=== PATIENT | male | born 1945 | race Caucasian/White ===

== ENCOUNTER 2017-02-28 00:18 | Emergency (ER) | payer OTHER ==
[~2017-02-28] VITALS: Ht 175.3 cm; Wt 81.7 kg
--- NOTE | ~2017-02-28 | EKG ---
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 : 1945 Requested By: Miley Siddiqui Order Number: [id number] MD: Gerardo Gastelum Measurements Intervals [place] Rate: 70 P: 24 TX: 218 QRS: 29 QRSD: 102 T: -11 QT: 389 QTc: 420 Interpretive Statements Sinus rhythm Borderline prolonged [place] interval Small inferior Q waves Compared to ECG 06/04/2015 08:42:24 Sinus tachycardia no longer present Electronically Signed On 02-28-2017 8:41:37 CDT by Gerardo Gastelum [email or web address] <ELECTRONICALLY SIGNED> By: Gerardo Gastelum MD, [facility] 02/28/17 0841 0026 002 Gerardo Gastelum MD, FACC /EPI
[~2017-02-28 00:18] MED LIST: ASPIR 8181 MG PO; ASPIRIN325 PO; ATORVASTATIN CA40 MG PO; CARVEDILOL25 MG PO; CRESTOR20 MG PO; FISH OIL 1,0001 EAC5 PO; MEDROLDOSEPACK PO; MULTIVITAMINS PO; NAPROSYN250 MG PO; NORCO 5-325 TA1 EACH PO; OMEPRAZOLE 20 M20 M1 PO; PRILOSEC20 MG PO; SIMVASTATIN40 MG PO; TYLENOL325 MG PO; VITAMINC500 PO; [UNRECOGNIZED DRUG - OTHER] PO
[2017-02-28 01:16] LABS: ABSOLUTE NEUTROPHILS 4.3 thou/uL (1.4-8.2); BASOPHILS 0.8 % (0.0-2.0); EOSINOPHILS 1.9 % (0.0-3.0); HEMATOCRIT 40.8 % (42.0-52.0); HEMOGLOBIN 13.7 gm/dL (14.0-18.0); LYMPHOCYTES 28.5 % (24.0-44.0); MCHC 33.6 g/dL (28.0-37.0); MCV 86.4 fL (80.0-100.0); MONOCYTES 8.8 % (1.0-8.0); PLATELET COUNT 185 thou/uL (150-400); RBC 4.72 mil/uL (4.50-6.00); RDW 13.6 % (10.5-14.5); WBC 7.2 thou/uL (4.0-11.0)
[2017-02-28 01:17] LABS: MANUAL DIFF NO
[2017-02-28 01:24] LABS: ANION GAP 8 mmol/L (7-16); BUN 16 mg/dL (7-18); CALCIUM 8.9 mg/dL (8.5-10.1); CHLORIDE 105 mmol/L (98-107); CO2 25 mmol/L (21-32); CREATININE 1.3 mg/dL (0.7-1.3); GLUCOSE 123 mg/dL (74-106); POTASSIUM 3.9 mmol/L (3.5-5.1); SODIUM 138 mmol/L (136-145)
[2017-02-28 01:32] LABS: TROPONIN-I < 0.04 ng/mL (<0.04-0.07)
== END 2017-02-28 04:09 | disposition home or self-care (01) ==
LOC: ER 00:18
PROVIDERS: Emergency Medicine
DX: H53.8 Other visual disturbances (principal); R51 Headache; R07.9 Chest pain, unspecified; I25.5 Ischemic cardiomyopathy; I10 Essential (primary) hypertension; K21.9 Gastro-esophageal reflux disease without esophagitis; E78.00 Pure hypercholesterolemia, unspecified; I25.10 Atherosclerotic heart disease of native coronary artery without angina pectoris; Z95.1 Presence of aortocoronary bypass graft; Z95.5 Presence of coronary angioplasty implant and graft; Z85.828 Personal history of other malignant neoplasm of skin; Z98.890 Other specified postprocedural states

== ENCOUNTER → 2019-10-17 | Outpatient (CLI) | payer OTHER | LOC: SJCVCIMAG 10:18 | DX: I25.10 Atherosclerotic heart disease of native coronary artery without angina pectoris (principal); I25.5 Ischemic cardiomyopathy; I10 Essential (primary) hypertension; Z95.1 Presence of aortocoronary bypass graft ==

== ENCOUNTER → 2020-04-16 | Outpatient (CLI) | payer OTHER | LOC: SJCVC 14:10 | PROVIDERS: ATTEND Internal Medicine | DX: R94.31 Abnormal electrocardiogram [ECG] [EKG] (principal); I44.0 Atrioventricular block, first degree; I25.10 Atherosclerotic heart disease of native coronary artery without angina pectoris; I25.5 Ischemic cardiomyopathy; I10 Essential (primary) hypertension; E78.5 Hyperlipidemia, unspecified ==

== ENCOUNTER → 2020-07-09 | Outpatient (CLI) | payer OTHER ==
[~2020-07-09] MED LIST changes: +CARVEDILOL12.5 MG PO; +LEVOXYL50 MCG PO; +OMEPRAZOLE40 MG PO; -PRILOSEC20 MG PO; +ROSUVASTATIN CA20 MG PO
== END ==
LOC: LAB 08:31
PROVIDERS: ATTEND Specialist
DX: Z01.812 Encounter for preprocedural laboratory examination (principal); Z20.828 Contact with and (suspected) exposure to other viral communicable diseases

== ENCOUNTER → 2020-07-14 | Outpatient (CLI) | payer OTHER ==
[~2020-07-14] VITALS: Ht 175.3 cm; Wt 81.6 kg
--- NOTE | 2020-07-16 09:53 | P ---
[facility] [place] [address] PROCEDURE REPORT Name: SONG FLORES V Room #: REG [facility]#: [id number] Admission: 07/14/20 Attend Phys: Brody Whalen Discharge: Date of : 47 Report #: [id number] THIS REPORT FOR: cc: Layton Church MD, Neal A. MD McElhinney, Christian C. MD ~ CC: Bordy Church MD DATE OF SERVICE: 07/14/2020 PROCEDURE PERFORMED: Colonoscopy with biopsies. HISTORY OF PRESENT ILLNESS: The patient is a 74-year-old male with a history of colon polyps, here for routine 5-year followup. Denies any symptoms other than a small episode of bright red blood per rectum 1 time last month. No diarrhea or constipation. No family history of colon cancer. DESCRIPTION OF PROCEDURE: The risks and benefits of the procedure were explained to the patient, those risks including but not limited to bleeding, perforation and the risk of sedation. He understood these risks and gave informed consent. Sedation was given using propofol per anesthesia. Next, a digital rectal exam was initially performed, which was normal. Next, using a standard Olympus colonoscope, the scope was placed in the patient's anus and advanced under direct vision to the cecum. The overall prep was good. The cecum and ileocecal valve were normal in appearance. Ascending, transverse and descending colon were normal. Two 3 mm sessile polyps were noted in the sigmoid colon, both removed with cold forceps, otherwise normal. The rectal mucosa was normal. On retroflexion, small nonbleeding internal hemorrhoids were noted. Close examination of the anal canal showed small external hemorrhoid with a small skin tag as well. No evidence of bleeding. No anal fissure noted. Scope was then withdrawn and the procedure terminated. The patient tolerated the procedure well. IMPRESSION: 1. Two small colonic polyps. 2. Small internal and external hemorrhoids with skin tag, likely source of recent bleeding. No evidence of bleeding at this time. 3. Otherwise, normal colonoscopy. RECOMMENDATIONS: 1. Await biopsy results. 2. If polyps are hyperplastic, consider repeat colonoscopy in 10 years; if adenomatous polyps, repeat in 5 years. 3. We will prescribe Analpram to be used on a p.r.n. basis. [address] [address] PROCEDURE REPORT Name: SONG FLORES V Room #: REG [facility] Benz#: [id number] Admission: 07/14/20 Attend Phys: Brody Whalen Discharge: Date of : 47 Report #: [id number] Thank you for allowing me to participate in his care. <ELECTRONICALLY SIGNED> By: Brody Phillips MD 07/16/20 0953 0907 1258 Brody Phillips MD /nt
--- NOTE | 2020-07-16 09:53 | P ---
[facility] [place] [address] PROCEDURE REPORT Name: SONG FLORES V Room #: REG [facility]#: [id number] Admission: 07/14/20 Attend Phys: Brody Whalen Discharge: Date of : 47 Report #: [id number] THIS REPORT FOR: cc: Layton Church MD, Neal A. MD McElhinney, Christian C. MD ~ CC: Brody Church MD DATE OF SERVICE: 07/14/2020 PROCEDURES PERFORMED: Upper endoscopy with biopsies and esophageal dilation. HISTORY OF PRESENT ILLNESS: The patient is a 74-year-old male with a history of gastroesophageal reflux disease and dysphagia. He underwent an upper endoscopy by myself in 2014, grade B erosive esophagitis was noted at that time and was started on Prilosec. He underwent dilation, which was helpful at that time, but now is having intermittent dysphagia again. Previous biopsies were negative for eosinophilic esophagitis. Gastric biopsies were positive for H. pylori at that time and he was treated. Plan is for repeat upper endoscopy. DESCRIPTION OF PROCEDURE: The risks and benefits of the procedure were explained to the patient, those risks including but not limited to bleeding, perforation and the risk of sedation. He understood these risks and gave informed consent. Sedation was given using propofol per anesthesia. Next, using a standard Olympus upper endoscope, the scope was placed in the patient's mouth and advanced under direct vision through the esophagus, stomach and into the second portion of the duodenum. The esophagus was normal throughout. The GE junction was normal. Upon entering the stomach, a small gastric polyp was noted in the high cardia, this was 3 mm in size and removed with cold forceps. Overall, the gastric mucosa was fairly normal. A mild gastritis was noted in the gastric antrum. No evidence of ulcerations or erosions. Biopsies were obtained to rule out H. pylori. The pylorus was normal and patent. The duodenal bulb, first and second portion were all normal. The scope was then brought back up into the patient's stomach and a Savary guidewire was inserted through the scope, leaving the guidewire in place as the scope was then withdrawn. Next, a 51-[place] Savary dilation of the esophagus was performed without difficulty. The wire and dilator were removed. The scope was reintroduced into the patient's stomach. There was no evidence of mucosal tear after dilation. The scope was then withdrawn and the procedure terminated. The patient tolerated the procedure well. IMPRESSION: 1. Small gastric polyp. 2. Mild gastritis. [address] [address] PROCEDURE REPORT Name: SONG FLORES V [facility] [id number] Admission: 07/14/20 Attend Phys: Brody Whalen Discharge: Date of : 47 Report #: [id number] 3. Otherwise, normal upper endoscopy. RECOMMENDATIONS: 1. Await biopsy results. 2. Continue daily PPI therapy. 3. Observe the patient post-dilation. Thank you for allowing me to participate in his care. <ELECTRONICALLY SIGNED> By: Brody Phillips MD 07/16/20 0953 [id number] 1258 Brody Phillips MD /nt
== END | disposition home or self-care (01) ==
LOC: GI 07:01
PROVIDERS: ATTEND Specialist
DX: K63.5 Polyp of colon (principal); K29.60 Other gastritis without bleeding; B96.81 Helicobacter pylori [H. pylori] as the cause of diseases classified elsewhere; K64.4 Residual hemorrhoidal skin tags; K64.8 Other hemorrhoids; K62.5 Hemorrhage of anus and rectum; K31.7 Polyp of stomach and duodenum; K29.70 Gastritis, unspecified, without bleeding; K21.9 Gastro-esophageal reflux disease without esophagitis; R13.10 Dysphagia, unspecified; I10 Essential (primary) hypertension; I25.10 Atherosclerotic heart disease of native coronary artery without angina pectoris; E78.00 Pure hypercholesterolemia, unspecified; I25.5 Ischemic cardiomyopathy; E03.9 Hypothyroidism, unspecified; Z98.890 Other specified postprocedural states; Z79.899 Other long term (current) drug therapy; Z95.1 Presence of aortocoronary bypass graft; Z88.8 Allergy status to other drugs, medicaments and biological substances
CPT/HCPCS: 62110; 62900

== ENCOUNTER → 2020-10-22 | Outpatient (CLI) | payer OTHER | LOC: SJCVC 15:01 | PROVIDERS: ATTEND Internal Medicine | DX: R94.31 Abnormal electrocardiogram [ECG] [EKG] (principal); I44.0 Atrioventricular block, first degree; I25.10 Atherosclerotic heart disease of native coronary artery without angina pectoris; I25.5 Ischemic cardiomyopathy; I10 Essential (primary) hypertension; E78.5 Hyperlipidemia, unspecified; K21.9 Gastro-esophageal reflux disease without esophagitis; E03.9 Hypothyroidism, unspecified; E78.00 Pure hypercholesterolemia, unspecified; Z95.1 Presence of aortocoronary bypass graft; Z79.899 Other long term (current) drug therapy ==

== ENCOUNTER → 2020-11-29 | Outpatient (CLI) | payer OTHER | LOC: SJCVCIMAG 09:35 | PROVIDERS: ATTEND Internal Medicine | DX: I08.8 Other rheumatic multiple valve diseases (principal); R94.31 Abnormal electrocardiogram [ECG] [EKG]; I25.10 Atherosclerotic heart disease of native coronary artery without angina pectoris; I42.9 Cardiomyopathy, unspecified; I10 Essential (primary) hypertension; I25.5 Ischemic cardiomyopathy; E78.00 Pure hypercholesterolemia, unspecified; Z95.1 Presence of aortocoronary bypass graft; Z68.25 Body mass index [BMI] 25.0-25.9, adult; Z79.899 Other long term (current) drug therapy; Z82.49 Family history of ischemic heart disease and other diseases of the circulatory system ==

== ENCOUNTER 2021-02-24 15:53 | Inpatient (IN) | payer OTHER ==
[~2021-02-24] VITALS: Ht 175.3 cm; Wt 83.5 kg
[2021-02-24 15:57] VITALS: BP 129/77
[2021-02-24] MEDS ORDERED: CHLORTHALIDONE25 MG PO (16:02)
[2021-02-24 16:29] LABS: BASOPHILS 1.1 % (0.0-2.0); EOSINOPHILS 1.8 % (0.0-3.0); HEMATOCRIT 42.8 % (42.0-52.0); HEMOGLOBIN 14.5 gm/dL (14.0-18.0); LYMPHOCYTES 28.9 % (24.0-44.0); MCH 28.8 pg (26.0-34.0); MCHC 33.9 g/dL (28.0-37.0); MCV 85.1 fL (80.0-100.0); MONOCYTES 10.2 % (1.0-8.0); PLATELET COUNT 191 thou/uL (150-400); RBC 5.03 mil/uL (4.50-6.00); RDW 14.3 % (10.5-14.5); WBC 5.2 thou/uL (4.0-11.0)
[2021-02-24 16:36] LABS: ANION GAP 7 mmol/L (7-16); BUN 24 mg/dL (7-18); CALCIUM 8.7 mg/dL (8.5-10.1); CHLORIDE 103 mmol/L (98-107); CO2 29 mmol/L (21-32); CREATININE 1.6 mg/dL (0.7-1.3); GLUCOSE 159 mg/dL (74-106); POTASSIUM 3.7 mmol/L (3.5-5.1); SODIUM 139 mmol/L (136-145)
[2021-02-24 16:42] LABS: APTT 25.7 Seconds (24.5-32.8); INR 0.98; PROTIME 10.7 Seconds (10.5-12.1)
[2021-02-24 16:46] LABS: ALBUMIN 3.7 g/dL (3.4-5.0); LIPASE 102 U/L (73-393); SGOT 21 U/L (15-37); SGPT 31 U/L (16-63); TOTAL BILIRUBIN 0.5 mg/dL (0.2-1.0); TOTAL PROTEIN 7.4 g/dL (6.4-8.2); TROPONIN-I <0.06 ng/mL (<0.06)
[2021-02-24 17:51] VITALS: BP 129/77
--- NOTE | 2021-02-24 18:27 | NUR ---
PATIENT ADMITTED TO ROOM AT THIS [facility]. HE IS ALERT ORIENTED X4,. PLEASANT WITH CARES. RESPIRATIONS ARE NON LABORED. DENIES PAIN AT THIS TIME. WILL CONT TO MONITOR AND ASSIST NEEDED,.
[2021-02-24 19:40] VITALS: BP 137/84
--- NOTE | 2021-02-25 03:55 | NUR ---
PROGRESS PT A/OX4, VSS, AFEBRILE. LUNGS CLEAR WITH RESPIRATIONS QUIET AND EASY. DENIES PAIN BRISK CAP REFILL, 2/2 PULSES SKIN WARM DRY AND INTACT. PT UP AD SUSANA VOIDING QS. NPO AFTER MIDNIGHT PENDING POSSIBLE CARDIAC EVALUATION. TELEMETRY INTACT READING SR WITH RATES 50'S TO 60'S.
[2021-02-25 04:00] VITALS: BP 138/80
--- NOTE | 2021-02-25 07:05 | EKG ---
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 : 1945 Requested By: Capo Frey Order Number: [id number] MD: Edwardo Cerda Measurements Intervals [place] Rate: 83 P: 57 CT: 219 QRS: 95 QRSD: 120 T: -9 QT: 373 QTc: 439 Interpretive Statements Sinus rhythm Borderline prolonged CT interval Probable left atrial enlargement Nonspecific intraventricular conduction delay Inferior infarct, age indeterminate Compared to ECG 02/28/2017 00:26:03 Intraventricular conduction delay now present Myocardial infarct finding now present Inferior Q waves no longer present Q waves no longer present Electronically Signed On 02-25-2021 7:05:26 CDT by Edwardo Cerda [email or web address] <ELECTRONICALLY SIGNED> By: Edwardo Cerda MD, FAC 02/25/21 0705 1605 1605 Edwardo Cerda MD, [facility] /EPI
[2021-02-25 08:00] VITALS: BP 125/87
[2021-02-25] MEDS ORDERED: BAYER CHEWABLE81 MG PO (08:06)
[2021-02-25 08:07] LABS: CREATININE 1.4 mg/dL (0.7-1.3); POTASSIUM 3.9 mmol/L (3.5-5.1)
[2021-02-25] MEDS ORDERED: CHLORTHALIDONE25 MG PO (08:07)
[2021-02-25 08:39] VITALS: BP 125/87
--- NOTE | 2021-02-25 09:49 | NUR ---
Assumed pt care at 7am.Pt in bed resying and has no c/o. Assessment com,pleted vss but low hr per monitor car operator. Dr Gastelum and Ranjit here,Dc order noted.Am meds given with breakfast,Dc summary compile and reviewed with pt. Saline lock and monitor car operator dc'd.At 0953,pt dc home with in wc.
== END 2021-02-25 10:47 | disposition home or self-care (01) | DRG 315 ==
LOC: ER 15:53 → EROBS 17:54 → 3W 17:54
PROVIDERS: Emergency Medicine; Internal Medicine; ADMIT Family Medicine; ATTEND Family Medicine
DX: I95.9 Hypotension, unspecified (principal); N17.9 Acute kidney failure, unspecified; I25.10 Atherosclerotic heart disease of native coronary artery without angina pectoris; I10 Essential (primary) hypertension; E78.5 Hyperlipidemia, unspecified; E03.9 Hypothyroidism, unspecified; K21.9 Gastro-esophageal reflux disease without esophagitis; I25.5 Ischemic cardiomyopathy; I25.2 Old myocardial infarction; Z79.82 Long term (current) use of aspirin; Z95.1 Presence of aortocoronary bypass graft; Z95.5 Presence of coronary angioplasty implant and graft; Z79.899 Other long term (current) drug therapy
CPT/HCPCS: 10879

== ENCOUNTER → 2021-06-06 | Outpatient (CLI) | payer OTHER ==
[~2021-06-06] MED LIST changes: +BAYER CHEWABLE81 MG PO; +CHLORTHALIDONE25 MG PO
== END ==
LOC: SJCVC 10:47
PROVIDERS: ATTEND Internal Medicine
DX: R94.31 Abnormal electrocardiogram [ECG] [EKG] (principal); I44.0 Atrioventricular block, first degree; I25.10 Atherosclerotic heart disease of native coronary artery without angina pectoris; I25.5 Ischemic cardiomyopathy; I10 Essential (primary) hypertension; E78.5 Hyperlipidemia, unspecified; I65.23 Occlusion and stenosis of bilateral carotid arteries; Z95.1 Presence of aortocoronary bypass graft; Z79.899 Other long term (current) drug therapy